=== PATIENT | male | born 1930 | race Caucasian/White ===

== ENCOUNTER 2019-07-11 08:41 | Day surgery (SDC) | payer MEDICARE ==
[2019-07-08 14:11] VITALS: BMI 222.6
[2019-07-11 09:37] LABS: #Basophils 0.1 thou/uL (0.0-0.2); #Eosinphils 0.2 thou/uL (0.0-0.7); #Monocytes 0.8 thou/uL (0.11-0.59); %Basophils 0.9 % (0.0-1.0); %Eosinophils 2.9 % (0.0-10.0); %Lymphocytes 36.9 % (21.0-51.0); %Monocytes 10.2 % (0.0-10.0); %Neutrophils 49.1 % (42.0-75.0); Hemoglobin 13.4 g/dL (14.0-18.0); Mean Corpuscular HGB CONC 32.5 g/dL (32.0-36.0); Mean Corpuscular Hemoglobin 30.9 pg (27.0-31.0); Mean Platelet Volume 8.5 fL (7.4-10.4); Platelet Count 192 thou/uL (130-400); RBC Distribution Width 13.5 % (11.5-14.5); Red Blood Cell (RBC) Count 4.33 mill/uL (4.70-6.10); White Blood Cell (WBC) Count 8.2 thou/uL (4.8-10.8)
[2019-07-11 09:43] LABS: INR-International Normal Ratio 1.5; PTT 31.3 SEC (22.9-36.1); Prothrombin Time 17.9 SEC (12.0-14.7)
[2019-07-11 09:58] LABS: ALT (SGPT) 22 U/L (8-55); AST (SGOT) 20 U/L (5-34); Albumin 3.9 g/dL (3.4-4.8); Alkaline Phosphatase 68 U/L (40-110); Anion Gap 11 mmol/L (10-20); BUN (Urea Nitrogen) 16 mg/dL (8.4-25.7); Bilirubin, Total 2.6 mg/dL (0.2-1.2); Calc. Creatinine Clearance 79 mL/min (70-130); Calcium 9.5 mg/dL (7.8-10.44); Carbon Dioxide 28 mmol/L (23-31); Chloride 102 mmol/L (98-107); Estimated GFR-MDRD 76; Globulin 2.6 g/dL (2.4-3.5); Glucose 96 mg/dL (83-110); Potassium 3.9 mmol/L (3.5-5.1); Protein, Total 6.5 g/dL (5.8-8.1); Sodium 137 mmol/L (136-145)
[2019-07-11] MEDS ORDERED: Indomethacin 50 MG SUPP ONE (11:44)
[2019-07-11] MEDS ORDERED: Ioversol 68 % 50 ML VIAL ONE (11:47)
[2019-07-11] MEDS ORDERED: Fentanyl 100 MCG/2 ML VIAL ONE (11:58)
[2019-07-11] MEDS ORDERED: cefTRIAXone\\ROCEPHIN 1 GM VIAL ONE (12:53)
[2019-07-11] MEDS ORDERED: EPINEPHrine 1 MG/10 ML Abboject SYRINGE ONE (13:27)
[2019-07-11] MEDS ORDERED: ePHEDrine/0.9% NaCl/PF SYRINGE 50 mg/10 ml ONE (13:27)
--- NOTE | 2019-07-11 14:10 | RAD ---
INTRAPROCEDURE FLUOROSCOPY FOR ERCP: FINDINGS: Ten intraprocedure fluoroscopic views demonstrate retrograde opacification of the common bile duct an d intrahepatic biliary system. No persistent filling defect. A small amount of reflux of contrast in the pancreatic duct is suggested. IMPRESSION: Intraprocedure fluoroscopy as above. Transcribed Date/Time: 07/11/2019 2:19 PM
--- NOTE | 2019-07-11 20:00 | OP ---
DATE OF PROCEDURE: 07/11/2019 PROCEDURES PERFORMED: Endoscopic retrograde cholangiopancreatography with sphincterotomy and balloon stone extraction. PREOPERATIVE DIAGNOSIS: Choledocholithiasis. DESCRIPTION OF PROCEDURE: Informed consent was obtained from the patient. He was sedated with general anesthesia and placed in the prone position. The duodenoscope was advanced easily to the second portion of the duodenum. There were 2 large periampullary diverticula. Two additional large duodenal diverticula were present just distal to the ampulla site. Ampulla could not be initially visualized. It was facing into the larger proximal diverticulum. Ultimately, the ampulla was cannulated with a sphincterotome and guidewire, and the guidewire was advanced into the common bile duct selectively. The pancreatic duct was not accessed. Cholangiogram was then performed. There was a 10 mm stone just below the bifurcation of the hepatic ducts. The intra and extrahepatic ducts and common bile duct appeared unremarkable. A complete sphincterotomy was performed. There was rapid flow of bile and contrast from the duct after sphincterotomy. A 9 mm balloon passed easily through the sphincterotomy. A 12 mm balloon was then inflated above the stone in the proximal most common bile duct and then swept. A 10 mm [id number] pigment stone was extracted from the duct easily. Again, there was rapid flow of contrast and bile from the duct. The air and fluid were suctioned from the duodenum and stomach. The procedure was a long procedure, however, the vast majority of the procedure was spent just identifying the opening of the ampulla and working on identifying an angle, which could be approached before the ampulla was manipulated. IMPRESSION: 1. Multiple large periampullary diverticula. 2. Choledocholithiasis. There was a 10 mm stone in the proximal common bile duct just below the bifurcation of the hepatic ducts. Cholangiogram was otherwise unremarkable. 3. Complete sphincterotomy performed. 9 mm and 12 mm balloons passed easily through the sphincterotomy. 4. 10 mm black pigment stone was extracted with the balloon. 5. Occlusion cholangiogram confirmed the duct to be clear. There was rapid flow of contrast and bile from the sphincterotomy. RECOMMENDATIONS: 1. Follow up in the office in a couple of weeks to recheck the trend of the liver tests. 2. We will monitor in PACU to rule out postprocedure complications. If he is doing well after a few hours, he could potentially discharge home. However, he can be admitted overnight if needed given his age and/or if he has any abdominal pain following the procedure. Job ID: [id number]
== END 2019-07-11 17:23 | disposition home or self-care (01) ==
LOC: SDC 08:41
PROVIDERS: ATTEND Internal Medicine Gastroenterology
PROC: 0F798ZZ Dilation of Common Bile Duct, Via Natural or Artificial Opening Endoscopic (ICD-10-PCS; principal; 2019-07-11)
PROC: 0FC98ZZ Extirpation of Matter from Common Bile Duct, Via Natural or Artificial Opening Endoscopic (ICD-10-PCS; 2019-07-11)
PROC: 0FC78ZZ Extirpation of Matter from Common Hepatic Duct, Via Natural or Artificial Opening Endoscopic (ICD-10-PCS; 2019-07-11)
DX: K80.50 Calculus of bile duct without cholangitis or cholecystitis without obstruction (principal); K57.10 Diverticulosis of small intestine without perforation or abscess without bleeding; K21.9 Gastro-esophageal reflux disease without esophagitis; I48.91 Unspecified atrial fibrillation; M19.90 Unspecified osteoarthritis, unspecified site; I50.9 Heart failure, unspecified; I25.10 Atherosclerotic heart disease of native coronary artery without angina pectoris; Z79.01 Long term (current) use of anticoagulants; Z79.82 Long term (current) use of aspirin; Z79.899 Other long term (current) drug therapy; Z87.891 Personal history of nicotine dependence; Z88.8 Allergy status to other drugs, medicaments and biological substances; Z90.49 Acquired absence of other specified parts of digestive tract; Z91.041 Radiographic dye allergy status
CPT/HCPCS: 74330; 80053; 85025; 85610; 85730; J0171; J0696; J3010; Q9967